=== PATIENT | female | born 1965 ===

== ENCOUNTER 2022-12-04 06:34 | Inpatient (IN) ==
[~2022-12-04 06:34] MED LIST: Buffered Lidocaine 1% SYRIN 1 ml INTRADERM ONE; Lactated Ringers 1000 ml BAG 1,000 ML IV SCH
[2022-12-04] MEDS ORDERED: ceFAZolin 2 GM in NS PREMIX 2 GM/100 ML BAG IVPB ONE (06:55)
[2022-12-04] MEDS ORDERED: Lidocaine 2% PF 5 ML VIAL ONE (07:19)
[2022-12-04 07:29] LABS: Rapid COVID-19 Molecular Undetected (Undetected)
[2022-12-04] MEDS ORDERED: ROPIVACAINE 5 MG/ML 30 ML BTL (0.5%) ONE (07:46)
[2022-12-04] MEDS ORDERED: HYDROmorphone 1 MG/1 ML SYRINGE IV PRN (08:05)
[2022-12-04] MEDS ORDERED: fentaNYL 100 mcg/2 ml 50 MCG/ML VIAL IV PRN (08:05)
[2022-12-04] MEDS ORDERED: Ondansetron 4 mg VIAL 2 MG/ML 2 ml VIAL IV PRN ×2 (08:05→10:26)
[2022-12-04] MEDS ORDERED: Naloxone 0.4 mg VIAL 0.4 mg/ml 1 ml VIAL IV PRN (08:05)
[2022-12-04] MEDS ORDERED: Acetaminophen IV 1 GM/100ML 1,000 MG/100 ML BAG IV PRN (08:05)
[2022-12-04] MEDS ORDERED: Phenylephrine IV 10 MG/ML 1 ml VIAL ONE (08:11)
[2022-12-04] MEDS ORDERED: fentaNYL 100 mcg/2 ml 50 MCG/ML VIAL ONE ×2 (08:16→11:38)
[2022-12-04] MEDS ORDERED: Midazolam 2 mg/2 ml VIAL 1 mg/ml 2 ml VIAL (2 mg) ONE ×2 (08:17→09:30)
[2022-12-04] MEDS ORDERED: Morphine 2 MG/ML SYRINGE IV PRN (10:26)
[2022-12-04] MEDS ORDERED: Magnesium Hydroxide LIQ 30 ML UDC PO PRN (10:26)
[2022-12-04] MEDS ORDERED: Ondansetron ODT 4 mg TAB 4 MG TAB PO PRN (10:26)
[2022-12-04] MEDS ORDERED: Lactulose 30 ml UDC PO PRN (10:26)
[2022-12-04] MEDS ORDERED: Propofol 10 MG/ML 20 ML BTL ONE (11:49)
[2022-12-04] MEDS ORDERED: HYOSCYAMINE 0.375 MG PO PRN (13:31)
[2022-12-04] MEDS ORDERED: Acetaminophen IV 1 GM/100ML 1,000 MG/100 ML BAG IV ONE (13:44)
[2022-12-04] MEDS: Lactated Ringers 1000 ml BAG 1,000 ML IV SCH (13:50)
[2022-12-04] MEDS: ceFAZolin 1 GM ADVAN 1 GM in NS 0.9% 50 ML 50 ML IVPB SCH (18:36)
[2022-12-04] MEDS: Magnesium Hydroxide LIQ 30 ML UDC PO SCH (21:47)
[2022-12-05] MEDS: Lactated Ringers 1000 ml BAG 1,000 ML IV SCH (01:24)
[2022-12-05] MEDS: ceFAZolin 1 GM ADVAN 1 GM in NS 0.9% 50 ML 50 ML IVPB SCH ×2 (02:05→09:12)
[2022-12-05 07:00] LABS: Mean Platelet Volume 6.8 fL (7.5-11.2); Platelet Count 285 10^3/uL (150-450)
[2022-12-05 07:13] LABS: Calcium 9.1 mg/dL (8.6-10.3); Creatinine, Serum 0.8 mg/dL (0.51-0.95); Potassium 3.6 mmol/L (3.5-5.0); eGFR CKD-EPI 86.4 (>60)
[2022-12-05] MEDS ORDERED: Vitamin THERAPEUTIC TAB PO SCH (09:00)
[2022-12-05] MEDS: Magnesium Hydroxide LIQ 30 ML UDC PO SCH (09:11)
[2022-12-05 09:53] VITALS: BP 126/68
== END 2022-12-05 14:35 | disposition home or self-care (01) | DRG 301 ==
LOC: AA 06:34 → INTOOBSV 10:27
PROVIDERS: ADMIT Orthopaedic Surgery Adult Reconstructive Orthopaedic Surgery; ATTEND Orthopaedic Surgery Adult Reconstructive Orthopaedic Surgery